=== PATIENT | male | born 1990 | race Caucasian/White ===

== ENCOUNTER 2017-07-12 08:00 | Outpatient (RCR) | payer BC, SELFPAY | END 2017-07-12 23:59 | LOC: PT.CARL 08:00 | PROVIDERS: Referring Provider Family Medicine; Visit Provider Family Medicine | DX: M54.10 Radiculopathy, site unspecified (principal) | CPT/HCPCS: 97012; 97035; 97110; 97140; 97162 ==

== ENCOUNTER 2017-08-01 16:00 | Outpatient (RCR) | payer BC, SELFPAY | END 2017-08-01 17:00 | disposition home or self-care (01) | LOC: PT 16:00 | PROVIDERS: Visit Provider Family Medicine | DX: M54.10 Radiculopathy, site unspecified (principal) | CPT/HCPCS: 97012; 97035; 97110; 97140 ==

== ENCOUNTER 2023-10-30 19:51 | Emergency (ER) | payer BC, SELFPAY ==
[2023-10-30 19:51] VITALS: BP 174/116; PULSE 99; RESP 16; TEMP 36.7; O2SAT 99; BMI 25.7
--- NOTE | 2023-10-30 19:57 | ECG_ITS ---
APPROVED REPORT Exam: Resting ECG HR:98 bpm ECG Measurements Heart Rate 98 AXES HI 166 P 63 QRSd 97 QRS 73 QT 326 T 45 QTc 382 Conclusion SINUS RHYTHM POSSIBLE RIGHT VENTRICULAR CONDUCTION DELAY [RSR (QR) IN V1/V2] BORDERLINE ECG UNCONFIRMED REPORT Electronically signed by : JUAN NAVAS, 10/31/2023 02:55:40
--- NOTE | 2023-10-30 19:57 | XR_ITS ---
PROCEDURE INFORMATION: Exam: XR Chest Exam date and time: 10/30/2023 7:59 PM Age: 33 years old Clinical indication: Pain; Chest pressure; Additional info: Cp TECHNIQUE: Imaging protocol: Radiologic exam of the chest. Views: 1 view. COMPARISON: No relevant prior studies available. FINDINGS: Lungs: The lungs appear clear. No focal areas of consolidation. Pleural spaces: No pleural effusions. Negative for pneumothorax. Heart/Mediastinum: Cardiac silhouette and pulmonary vasculature are within range of normal. Bones/joints: There is no evidence of acute fracture. IMPRESSION: Negative for an acute cardiopulmonary abnormality.
[2023-10-30] MEDS: ASPIRIN 81MG CHEWABLE TABLET 324 MG PO (20:04)
[2023-10-30 20:06] LABS: Basophils # 0.1 K/mm3 (0-0.2); Basophils % 0.8 % (0.1-2.0); Eosinophils # 0.2 K/mm3 (0.0-0.4); Eosinophils % 1.8 % (0.1-12.0); Hematocrit 42.2 % (42.0-52.0); Hemoglobin 14.3 g/dL (14.1-18.0); Lymphocytes # 2.4 K/mm3 (0.7-4.5); Lymphocytes % 24.3 % (10-50); Mean Corpuscular HGB Conc 33.9 g/dL (31.8-35.4); Mean Corpuscular Hemoglobin 33.2 pg (27.0-31.2); Mean Corpuscular Volume 97.9 fl (80-94); Mean Platelet Volume 8.3 fl (7.4-10.4); Monocytes # 0.8 K/mm3 (0.1-1.0); Monocytes % 7.6 % (1.7-9.3); Neutrophils # 6.5 K/mm3 (1.8-7.8); Neutrophils % 65.6 % (37.0-80.0); Platelet Count 334 K/mm3 (142-424); Red Blood Count 4.31 M/mm3 (4.60-6.20); Red Cell Distribution Width 12.7 % (11.5-17.5)
[2023-10-30 20:30] VITALS: BP 151/98; PULSE 82; RESP 14; O2SAT 98
[2023-10-30 20:31] LABS: Chloride 106 mmol/L (98-107); Potassium 3.8 mmoL/L (3.5-5.1); Sodium 140 mmol/L (136-145)
[2023-10-30 20:33] LABS: Alanine Aminotransferase 33 U/L (12-78); Aspartate Amino Transferase 31 U/L (17-59); Blood Urea Nitrogen 9 mg/dl (9-20); Creatinine Clearance Estimated 136 mL/min (50-200); Estimated Glomerular Filt Rate 96 ml/min (>60); GFR (African American) 116 ML/MIN (>60)
[2023-10-30 20:34] LABS: Albumin Level 4.3 g/dl (3.5-5.0); Albumin/Globulin Ratio 1.4 (1.1-1.8); Alkaline Phosphatase 64 U/L (38-126); Anion Gap 11.8 mEq/L (5-15); Bilirubin,Total 0.6 mg/dl (0.2-1.3); Calcium 9.1 mg/dl (8.4-10.2); Carbon Dioxide 26 mmol/L (22.0-30.0); Glucose 122 mg/dl (74-100); Total Protein,Serum 7.3 g/dl (6.3-8.2)
[2023-10-30 20:46] LABS: Troponin I < 0.01 ng/ml (0.00-0.034)
[2023-10-30 21:30] VITALS: BP 149/99; PULSE 63; RESP 18; O2SAT 98
--- NOTE | 2023-10-30 21:41 | ED_ITS ---
<Statement entered by Franklin Rushing MD - 10/31/23 00:09> I was consulted by the ROBERTO, and we discussed the complexity of the problems being addressed. I approved the treatment and management plan for this patient's care in the emergency department, thus performing a substantive portion of the medical decision making. Franklin Rushing MD Discharge Plan Disposition Patient Disposition: Home, Self-Care Condition: Good Referrals Follow up/Referrals: Kathy Sandoval [Primary Care Provider] - See instructions Gasper Patel MD [Staff Physician] - See instructions Activity Restrictions/Add. Instructions Additional Instructions/Restrictions: Follow-up with your PCP as needed for any return or recurrence of symptoms. I have referred you to cardiology. Please call make an appointment for the a.m. Please return to the emergency department for any worsening or change in your signs and symptoms including chest pain shortness of breath headache diaphoresis etc. as needed Clinical Impressions Clinical Impression: Chest pain Discharge ED Provider: Franklin Rushing General Adult HPI <JUN Maza - Last Filed: 10/30/23 23:36> General Chief complaint: Chest Pain Stated complaint: CP Time Seen by Provider: 10/30/23 20:00 Mode of Arrival: Ambulatory Source of Information: Patient Limitations: No Limitations Description of Symptoms (Recalled from ER Triage Doc. by RN): pt c/o midsternal CP with radiation that started 30 mins to arrival. pt states been having heartburn since History of Present Illness HPI narrative: Patient presents for epigastric and substernal chest pain that radiated down his left arm and began this evening. Patient states that he ate supper without difficulty without any evidence of choking and immediately thereafter started having epigastric pain/substernal chest pain that radiated up and down his left arm. Patient states his symptoms persisted for approximately 1 hour and dissipated without intervention approximately 30 minutes after arrival here in the emergency department. Patient has never had the symptoms before but does have a history of possibly IBS and has had a bidirectional endoscopy in the past. Patient currently denies shortness of breath fever chills hemoptysis hematochezia melena nausea vomit diarrhea. Related Data Allergies Allergy/AdvReac Type Severity Reaction Status Date / Time No Known Allergies Allergy Unverified 06/28/17 16:02 PFS <JUN Maza - Last Filed: 10/30/23 23:36> [facility] Disclaimer: The information contained in this section may have been updated after the patient was seen, as this information can be updated by other users. Social History Smoking Status: Never smoker alcohol intake: current current occupational status: employed Travel in the last 8 weeks: None <JUN Maza - Last Filed: 10/30/23 23:36> ROS Obtained: Yes Systems reviewed as appropriate & no additional complaints except as documented Physical Exam <JUN Maza - Last Filed: 10/30/23 23:36> General General appearance: alert and in no apparent distress Eye Eye exam: Present normal appearance ENT ENT exam: Present normal exam Neck Neck exam: Present normal inspection, full ROM and trachea midline; Absent tenderness Respiratory Respiratory exam: Present normal lung sounds bilaterally; Absent respiratory distress Cardiovascular Cardiovascular exam: Present regular rate and normal rhythm Abdominal Exam Abdominal exam: Present soft and normal bowel sounds; Absent tenderness Extremities Exam Extremities exam: Present normal inspection and full ROM; Absent tenderness Back Exam Back exam: Present normal inspection and full ROM; Absent tenderness Neurological Exam Neurological exam: Present alert and oriented X3 Medical Decision Making <JUN Maza - Last Filed: 10/30/23 23:36> Medical Records Medical records reviewed: Yes I reviewed the patient's medical records. Hussein Inquiry Pt receiving controlled substance: No Vital Signs: 10/30/23 19:51 10/30/23 20:30 10/30/23 21:30 Temperature 98.0 F Temperature Source Oral Pulse Rate 82 63 Pulse Rate [Right] 99 H Respiratory Rate 16 14 18 Blood Pressure 151/98 H 149/99 H Blood Pressure [Right Arm] 174/116 H Blood Pressure Mean 115 108 Blood Pressure Mean [Right Arm] 135 02 Sat by Pulse Oximetry 99 98 98 Oxygen Delivery Method 10/30/23 21:59 Temperature 98.0 F Temperature Source Oral Pulse Rate 63 Pulse Rate [Right] Respiratory Rate 16 Blood Pressure 149/99 H Blood Pressure [Right Arm] Blood Pressure Mean Blood Pressure Mean [Right Arm] 02 Sat by Pulse Oximetry Oxygen Delivery Method Room Air Lab Data Lab results reviewed: Yes I reviewed the patient's lab results. Lab Results 10/30/23 19:55: WBC 10.0, RBC 4.31 L, Hgb 14.3, Hct 42.2, MCV 97.9 H, MCH 33.2 H , MCHC 33.9, RDW 12.7, Plt Count 334, MPV 8.3, Neut % (Auto) 65.6, Lymph % (Auto) 24.3, [place] % (Auto) 7.6, Eos % (Auto) 1.8, Baso % (Auto) 0.8, Neut # (Auto) 6.5, Lymph # (Auto) 2.4, [place] # (Auto) 0.8, Eos # (Auto) 0.2, Baso # (Auto) 0.1 10/30/23 20:19: Sodium 140, Potassium 3.8, Chloride 106, Carbon Dioxide 26, Anion Gap 11.8, BUN 9, Creatinine 0.90, Estimated Creat Clear 136, Estimated GFR 96, Est GFR ( Amer) 116, Glucose 122 H, Calcium 9.1, Total Bilirubin 0.6, AST 31, ALT 33, Alkaline Phosphatase 64, Troponin I < 0.01, Total Protein 7.3, Albumin 4.3, Globulin 3.0, Albumin/Globulin Ratio 1.4 10/30/23 19:55 10/30/23 20:19 Orders (Tests/Meds): ED MEDICATIONS Discontinued Medications Generic Name Dose Route Start Last Admin Trade Name Freq PRN Reason Stop Dose Admin Aspirin 324 mg 10/30/23 19:58 10/30/23 20:04 Aspirin 81mg Chewable Tablet PO 10/30/23 19:59 324 mg ONCE ONE Administration ORDERS Category Date Time Status Chest XR -- portable [XR chest portable] Stat Exams 10/30/23 19:57 Completed Complete Blood Count Auto Diff Stat Lab 10/30/23 19:55 Completed Comprehensive Metabolic Panel Stat Lab 10/30/23 20:19 Completed Troponin I Stat Lab 10/30/23 20:19 Completed HEART Score History (anamnesis): Slightly suspicious ECG: Normal Age: <45 years Risk factors: No known risk factors Troponin: </= normal limit HEART Score: 0 Medical Decision Narrative: In summary patient is a 3-year-old male who presents to the emergency department for evaluation of chest pain. Patient is dynamically stable upon arrival, afebrile. Physical exam is unremarkable and currently nonfocal. Differential diagnosis includes ACS versus esophagitis ulcer disease etc. Initial workup will be conducted with hematologic labs plain film chest x-ray. Patient is currently chest pain-free should it recur will initiate Toradol and Tylenol . Initial workup reviewed by me shows that his hematologic labs are nonactionable but EKG shows no evidence of ACS and plain film chest x-ray shows no acute processes Via my informal review. Upon repeat evaluation she has remained hemodynamically stable and chest pain-free. Given this patient is appropriate for discharge with referral to cardiology for close follow-up and referral back to his PCP for a GI referral as well. <Franklin Rushing MD - Last Filed: 10/30/23 21:51> Vital Signs: 10/30/23 19:51 10/30/23 20:30 10/30/23 21:30 Temperature 98.0 F Temperature Source Oral Pulse Rate 82 63 Pulse Rate [Right] 99 H Respiratory Rate 16 14 18 Blood Pressure 151/98 H 149/99 H Blood Pressure [Right Arm] 174/116 H Blood Pressure Mean 115 108 Blood Pressure Mean [Right Arm] 135 02 Sat by Pulse Oximetry 99 98 98 Oxygen Delivery Method 10/30/23 21:59 Temperature 98.0 F Temperature Source Oral Pulse Rate 63 Pulse Rate [Right] Respiratory Rate 16 Blood Pressure 149/99 H Blood Pressure [Right Arm] Blood Pressure Mean Blood Pressure Mean [Right Arm] 02 Sat by Pulse Oximetry Oxygen Delivery Method Room Air Lab Data Lab Results 10/30/23 19:55: WBC 10.0, RBC 4.31 L, Hgb 14.3, Hct 42.2, MCV 97.9 H, MCH 33.2 H , MCHC 33.9, RDW 12.7, Plt Count 334, MPV 8.3, Neut % (Auto) 65.6, Lymph % (Auto) 24.3, [place] % (Auto) 7.6, Eos % (Auto) 1.8, Baso % (Auto) 0.8, Neut # (Auto) 6.5, Lymph # (Auto) 2.4, [place] # (Auto) 0.8, Eos # (Auto) 0.2, Baso # (Auto) 0.1 10/30/23 20:19: Sodium 140, Potassium 3.8, Chloride 106, Carbon Dioxide 26, Anion Gap 11.8, BUN 9, Creatinine 0.90, Estimated Creat Clear 136, Estimated GFR 96, Est GFR ( Amer) 116, Glucose 122 H, Calcium 9.1, Total Bilirubin 0.6, AST 31, ALT 33, Alkaline Phosphatase 64, Troponin I < 0.01, Total Protein 7.3, Albumin 4.3, Globulin 3.0, Albumin/Globulin Ratio 1.4 Orders (Tests/Meds): ED MEDICATIONS Discontinued Medications Generic Name Dose Route Start Last Admin Trade Name Ren PRN Reason Stop Dose Admin Aspirin 324 mg 10/30/23 19:58 10/30/23 20:04 Aspirin 81mg Chewable Tablet PO 10/30/23 19:59 324 mg ONCE ONE Administration ORDERS Category Date Time Status Chest XR -- portable [XR chest portable] Stat Exams 10/30/23 19:57 Completed Complete Blood Count Auto Diff Stat Lab 10/30/23 19:55 Completed Comprehensive Metabolic Panel Stat Lab 10/30/23 20:19 Completed Troponin I Stat Lab 10/30/23 20:19 Completed ECG Data Tracing #1: Independently interpreted by me, rate is 98, rhythm is regular, axis normal, no ST elevation in anatomical contiguous leads, QTc 382 Critical Care <JUN Maza - Last Filed: 10/30/23 23:36> Critical Care Time Critical Care Time: No
[2023-10-30 21:59] VITALS: BP 149/99; PULSE 63; RESP 16; TEMP 36.7; O2SAT 98
== END 2023-10-30 22:00 | disposition home or self-care (01) ==
PROVIDERS: Emergency Provider Emergency Medicine; PCP Nurse Practitioner Family
DX: R07.9 Chest pain, unspecified (principal); R10.13 Epigastric pain
CPT/HCPCS: 71045; 80053; 84484; 85025; 93005; 99284

== ENCOUNTER 2023-11-07 12:02 | Outpatient (CLI) | payer BC, SELFPAY ==
[2023-11-07 12:24] LABS: Basophils # 0.1 K/mm3 (0-0.2); Basophils % 0.5 % (0.1-2.0); Eosinophils # 0.1 K/mm3 (0.0-0.4); Hematocrit 43.4 % (42.0-52.0); Hemoglobin 14.6 g/dL (14.1-18.0); Lymphocytes # 1.7 K/mm3 (0.7-4.5); Lymphocytes % 15.7 % (10-50); Mean Corpuscular HGB Conc 33.5 g/dL (31.8-35.4); Mean Corpuscular Hemoglobin 32.7 pg (27.0-31.2); Mean Corpuscular Volume 97.5 fl (80-94); Mean Platelet Volume 7.9 fl (7.4-10.4); Monocytes # 0.6 K/mm3 (0.1-1.0); Monocytes % 5.1 % (1.7-9.3); Neutrophils # 8.5 K/mm3 (1.8-7.8); Neutrophils % 77.8 % (37.0-80.0); Platelet Count 362 K/mm3 (142-424); Red Blood Count 4.45 M/mm3 (4.60-6.20); Red Cell Distribution Width 12.9 % (11.5-17.5)
[2023-11-07 12:30] LABS: D-Dimer 0.26 ug/mL (0.0-0.5)
[2023-11-07 13:16] LABS: Alanine Aminotransferase 35 U/L (12-78); Albumin Level 4.8 g/dl (3.5-5.0); Alkaline Phosphatase 85 U/L (38-126); Anion Gap 13.4 mEq/L (5-15); Aspartate Amino Transferase 32 U/L (17-59); Bilirubin,Direct 0.2 mg/dl (0.0-0.4); Bilirubin,Indirect 0.5 mg/dL (0.0-0.9); Bilirubin,Total 0.7 mg/dl (0.2-1.3); Bilirubin,Unconjugated 0.5 mg/dL (0.0-1.1); Blood Urea Nitrogen 8 mg/dl (9-20); Calcium 10.1 mg/dl (8.4-10.2); Carbon Dioxide 26 mmol/L (22.0-30.0); Chloride 106 mmol/L (98-107); Chol/HDL Ratio 3.8 (1-3.5); Cholesterol 197 mg/dl (140-200); Estimated Glomerular Filt Rate 96 ml/min (>60); GFR (African American) 116 ML/MIN (>60); Glucose 97 mg/dl (74-100); HDL Cholesterol 52 mg/dl (40-60); Potassium 4.4 mmoL/L (3.5-5.1); Sodium 141 mmol/L (136-145); Total Protein,Serum 7.9 g/dl (6.3-8.2); Triglycerides 124 mg/dl (30-150); VLDL Cholesterol 25 mg/dL (0-40)
[2023-11-07 13:27] LABS: Direct LDL Cholesterol 109.68 mg/dL (100-129)
[2023-11-07 13:33] LABS: Free T4 (Free Thyroxine) 0.94 ng/dl (0.78-2.19)
[2023-11-07 13:47] LABS: Thyroid Stimulating Hormone 0.88 uIU/mL (0.465-4.68)
== END 2023-11-07 23:59 | disposition home or self-care (01) ==
LOC: LAB 12:03
PROVIDERS: PCP Nurse Practitioner Family; Visit Provider Nurse Practitioner
DX: R07.9 Chest pain, unspecified (principal); I10 Essential (primary) hypertension
CPT/HCPCS: 36415; 80048; 80061; 80076; 83735; 84439; 84443; 85025; 85378

== ENCOUNTER 2023-11-16 06:19 | Outpatient (CLI) | payer BC, SELFPAY ==
--- NOTE | 2023-11-16 06:23 | NM_ITS ---
APPROVED REPORT Exam: Nuclear Stress Test Indication: HTN, FM HX, PALPITATIONS Patient Location: Outpatient Stress Tech: Alessandra Galeana IN Tech:Trudy Holm AKSHATDell RT (R)(N)(M) Ht: 5 ft 11 in Wt: 180 lbs HR: 104 bpm BP: 146/92 mmHg BSA: 2.02 m2 TID: 1.22 BMI: 25.1 History: HTN, FM HX, PALPITATIONS Procedure: Patient exercised on Chi protocol 9:00 minutes and sec, resting heart rate 104 bpm, resting blood pressure 146/92 mmHg, with exercise maximum heart rate achived was 181 bpm which is 98 % of the maximum predicted heart rate and blood pressure was 194/86 mmHg. Test was stopped due to fatigue. Patient has exercise capacity, achieved 10.1 METs of workload on treadmill, the blood pressure response to exercise was . Cardiac Stress and Resting SPECT Images: Cardiac Stress and Resting SPECT images were obtained using technetium 99m Myoview 31.4 mCi stress and 10.74 mCi at rest. Resting and stress imaging in supine and prone positions demonstrate no evidence of fixed or reversible perfusion defects. There is increased transient ischemic dilatation ratio (TID 1.22), suggestive of possible multivessel disease or balanced ischemia. Gated imaging demonstrates normal global and regional LV systolic function. LVEF is calculated at 54%. Conclusion: No evidence of fixed or reversible perfusion defects. There is increased transient ischemic dilatation ratio (TID 1.22), suggestive of possible multivessel disease or balanced ischemia. Gated imaging demonstrates normal global and regional LV systolic function. LVEF is calculated at 54%. In the setting of increased TID, young age, and normal LVEF, further evaluation with noninvasive testing (i.e. CCTA) is recommended prior to proceeding with invasive coronary angiography. Electronically signed by : Arin Multani MD 11/17/2023 11:58:58
--- NOTE | 2023-11-16 06:24 | CA_ITS ---
APPROVED REPORT EXAM: Comprehensive 2D, Doppler, and color-flow Echocardiogram Globe Changer: Wendy Hedrick CRT Ht: 5 ft 11 in Wt: 188lbs BSA: 2.05 BP: 163/109 mmHg Indications: Chest Pain, Hypertension/HDD 2D Dimensions LA Volume 30.10 mL LA Volume Index 14.30 mL/m2 (M/F) 16-34 M-Mode Dimensions RVDd 2.15 cm (0.9-2.6) LA Diam 3.02 cm (1.9-4.0) LVDd 5.26 cm (3.5-5.7) LVDs 3.22 cm (3.5-5.7) IVSd 1.07 cm (0.6-1.1) PWd 1.00 cm (0.6-1.1) EF (Teich) 68.70% FS 38.80% EDV (Teich) 133.00 mL TAPSE 2.31 (<1.7) ESV (Teich) 41.60 mL LV Diastology E Decel Time 157 (160-240 msec) E/A Ratio 1.36 MED A' 6.80 cm/s LAT A' 7.20 cm/s Aortic Valve AO Peak GR. 5.40 mmHg Mitral Valve MV A Velocity 50.0 (40-130 cm/s) E/A Ratio 1.36 Pulmonary Valve PV Peak Velocity 178.0 (50-150 cm/s) Tricuspid Valve TR P. Velocity 112.00 cm/s RAP Estimate 10.00 mmHg RVSP 15.10 mmHg Left Ventricle The left ventricle is normal size. The left ventricular systolic function is normal. The left ventricular ejection fraction is within the normal range. There is normal left ventricular wall thickness. There is normal LV segmental wall motion. The left ventricular diastolic function is normal. LVEF is 55%. Right Ventricle The right ventricle is normal size. The right ventricular systolic function is normal. Atria The left atrium size is normal. The right atrium size is normal. There is no Doppler evidence of interatrial shunt. Aortic Valve The aortic valve opens well. The aortic valve is trileaflet. There is no aortic valvular stenosis. No aortic regurgitation is present. Mitral Valve The mitral valve is normal in structure. No evidence of mitral valve stenosis. Trace mitral regurgitation. Tricuspid Valve The tricuspid valve leaflets are thin and pliable. Trace tricuspid regurgitation. There is insufficient TR jet to estimate RVSP. Pulmonic Valve The pulmonary valve is normal in structure. Trace pulmonic regurgitation. Great Vessels The aortic root is normal in size. The ascending aorta is normal in size. IVC is normal in size and collapses >50% with inspiration. Pericardium There is no pericardial effusion. Other Information Study Quality: Adequate Conclusion Normal biventricular systolic function. No significant valvular stenosis or regurgitation. Electronically signed by : Arin Multani MD 11/20/2023 21:16:16
[2023-11-16] MEDS: SODIUM CHLORIDE 0.9% 10ML SYR (RAD ONLY) 10 ML IV ×2 (06:30→08:05)
[2023-11-16] MEDS: ISOTOPE MYOVIEW (PER STUDY) 1 DOSE IV (09:44)
--- NOTE | 2023-11-16 12:08 | CA_ITS ---
APPROVED REPORT Exam: Exercise Treadmill Technologist: Alessandra Galeana, Ht: 5 ft 11 in Wt: 188 lbs BSA: 2.05 m2 HR: 78 bpm BP: 146/92 mmHg Rhythm: NSR Indications: Chest pain Medical History Medications: Losartan,,,,, Nexium,,,,, Stress Test Details Test: Chi HR Resting HR: 104 bpm Max Heart Rate (APMHR): 185 bpm Max HR Achieved: 181 bpm Target HR (85% APMHR): 157 bpm % of APMHR: 98 Recovery HR: 123 bpm HR response to stress: Normal HR response to stress BP Resting BP: 146.0/92.0 mmHg Max BP: 194.0/86.0 mmHg Recovery BP: 158.0/98.0 mmHg BP response to stress: Normal blood pressure response to stress. ECG Resting ECG: NSR, normal ST Stress ECG: < 0.[address] depression Arrhythmia: None Recovery ECG: Return to baseline within 3 minutes of recovery Recovery Arrhythmia: None Clinical Exercise duration: 09:00 min Highest Stage Achieved: III Exercise capacity: 10.1 METs Overall Exercise Capacity for Age: Average Stress ECG Conclusion Exercised 9:00 on Chi Protocol, completing stage III. Max HR: 175 % of PM: 95% Max BP: 194/86 METs: 10.1 Test stopped due to: SOA, fatigue. Symptoms: No CP. Arrhythmias/Ectopy: None ST-T Changes: < 0.[address] depression Concluion: Average exercise capacity. Normal GXT. Myoview images reported separately. Test Summary REST . . . . . . . Sitting REST . . . . . . . Standing REST 11:42 0.0 0.0 104 . 146/ 92 . . Stage 1 01:00 10.0 1.7 120 . . . . Stage 1 02:00 10.0 1.7 124 . . . . Stage 1 03:00 10.0 1.7 124 . 176/ 86 . . Stage 2 01:00 12.0 2.5 146 . . . . Stage 2 02:00 12.0 2.5 157 . . . . Stage 2 03:00 12.0 2.5 160 . 194/ 86 . . Stage 3 01:00 14.0 3.4 174 . . . . Stage 3 . . . . . . . Myoview Injected Stage 3 02:00 14.0 3.4 178 . . . . Stage 3 03:00 14.0 3.4 175 . . . Stop exercise at 09:00 RECOVERY 01:00 0.0 0.0 163 . . . . RECOVERY 02:00 0.0 0.0 140 . 182/ 97 . . RECOVERY 03:00 0.0 0.0 125 . 182/ 97 . . RECOVERY 04:00 0.0 0.0 126 . 149/ 96 . . RECOVERY 05:00 0.0 0.0 123 . 158/ 98 . . RECOVERY 05:43 0.0 0.0 114 . 158/ 98 . . Electronically signed by : Arin Multani MD 11/17/2023 11:39:53
== END 2023-11-16 23:59 | disposition home or self-care (01) ==
PROVIDERS: PCP Nurse Practitioner Family; Visit Provider Nurse Practitioner
DX: R07.9 Chest pain, unspecified (principal); I10 Essential (primary) hypertension
CPT/HCPCS: 78452; 93017; 93018; 93306; A9502

== ENCOUNTER 2023-12-23 08:53 | Outpatient (CLI) | payer BC, SELFPAY ==
--- NOTE | 2023-12-23 08:54 | CT_ITS ---
APPROVED REPORT Legal Billing Analyst: CLINICAL INDICATION Chest Pain TECHNIQUE Image Acquisition: A 128 slice MDCT scanner ([employer] View) was used for data acquisition. A noncontrast coronary calcium scan was performed. A CT attenuation threshold of 130 Hounsfield units (HU) was used for the detection of calcium in contiguous voxels of 1 sq mm in area to be counted as individual lesions. Bolus tracking in the ascending aorta with a threshold of 180 HU was performed. Immediately afterwards, ECG synchronized cardiac CT was then performed from the cardiac base to apex using retrospective gating with ECG tube current modulation. A total of 85 mL of Isovue 370 mg/mL contrast medium was administered at 5 mL/sec followed by a saline flush using a biphasic injection protocol. A tube voltage of 120 KVp was used. The patient received the following medications prior to the cardiac CT. 5 mg of intravenous metoprolol 0.8 mg of sublingual nitroglycerin The average heart rate at the time of acquisition was 78 bpm and regular. Image Reconstruction Transaxial images were reconstructed at 0.67 mm slide thickness. Data was reviewed interactively on an advanced workstation capable of 2 and 3-dimensional displays in all conventional reconstruction formats, including multiplanar reformations, maximum intensity projections, curved multiplanar reformations, and volume rendered reconstructions. When applicable, selected routine images describing the relevant coronary anatomy and pathology were saved and sent to PACS. Complications None Technical Quality Overall image quality was good. Coronary artery opacification was adequate. Total DLP (Dose-Length Product) is 1639.9 mGy-cm. The reported value represents the total of one or more individual components during the CT acquisition of this date and at this time, and as such, the same value may appear in more than one CT report depending on the interpreting/reporting physicians. COMPARISON None FINDINGS CT Coronary Calcium Scoring LMA (Left Main Artery) = 0 LAD (Left Anterior Descending) = 0 LCX (Left Coronary Circumflex) = 0 RCA (Right Coronary Artery) = 0 Total Calcium Score = 0 using the AJ-130 method. The interpretation of the calcium heart score is based on the following continuum*: 0 = no calcified plaque detected (risk of coronary artery disease is very low ??? less than 5%) 1-10 = calcium detected in extremely minimal levels (risk of coronary diseases is still low ??? less than 10%) 11-100 = mild levels of plaque detected with certainty (mild or minimal narrowing of heart arteries is likely) 101-400 = definite,at least moderate levels of plaque detected (relatively high risk of a heart attack within 3-5 years) >401-999 = extensive levels of plaque detected (high risk of heart attack, high levels of vascular disease are present, high likelihood of at least one significant coronary narrowing) *The calcium heart score quantifies the burden of coronary calcification/plaque in the coronary arteries. The calcium heart score is not able to evaluate the presence or burden of non-calcified (i.e. soft) plaque. There is no identifiable calcification in the aortic valve, mitral annulus or mitral valve, pericardium, or myocardium. Coronary CT Angiography The coronary arterial system is right dominant. Quantitative Stenosis Grading: Left Main (LM): The left main originates normally from the left sinus of Valsalva. The LM bifurcates into the left anterior descending artery and left circumflex artery. The LM is patent with no evidence of atherosclerosis. Left Anterior Descending (LAD) and Diagonal Branches: The LAD gives off 2 diagonal branch(es). The LAD and its branches are patent with no evidence of atherosclerosis. There is no evidence of LAD-myocardial bridge. Left Circumflex (LCX) and Obtuse Marginals (OM): The LCX gives off 1 Obtuse Marginal (OM) branch(es). The LCX and its branches are patent with no evidence of atherosclerosis. Right Coronary Artery (RCA): The RCA originates normally from the right sinus of Valsalva. The RCA gives off a posterior descending artery (PDA) and posterolateral (PL) branches. The RCA and its branches are patent with no evidence of atherosclerosis. Non-Coronary Cardiac Findings: Analysis of the left ventricular (LV) structure and function was performed after 3-D reconstruction of the LV from axial images, with user-corrected automatic contouring for assessment of LV volumes and user-defined reconstruction from oblique planes for measurement of 3-D cardiac structure and function. -The left ventricle systolic function is normal. -There is no left atrial appendage filling defect. Two right pulmonary veins and two left pulmonary veins drain normally into the left atrium. -No pericardial thickening or calcification. -Central and branch pulmonary arteries in the [id number] are unremarkable. -Thoracic aorta within the visualized thoracic aortic-branches in the [id number] is unremarkable. Extracardiac Structures No significant extra-cardiac findings. Note, however, that this study is focused on the cardiac findings. IMPRESSION -No coronary calcification with an Agatston score = 0 using the AJ-130 method. -No evidence of significant flow-limiting atherosclerosis of the coronary arteries. -No evidence of coronary anomalies or myocardial bridges. -CAD-RADS 0. Management recommendations per ACC/AHA guidelines*, as clinically appropriate. *Recommendations: CAD RADS 0: Reassurance. Consider non-atherosclerotic causes of chest pain. CAD RADS 1: Consider non-atherosclerotic causes of chest pain. Consider preventive therapy and risk factor modification. CAD RADS 2: Consider non-atherosclerotic causes of chest pain. Consider preventive therapy and risk factor modification, particularly for patients with nonobstructive plaque in multiple segments. CAD RADS 3: Consider further functional testing. Consider symptom-guided anti-ischemic and preventive pharmacotherapy as well as risk factor modification per published guideline statements. CAD RADS 4A: Consider further functional testing or invasive coronary angiography with revascularization per published guideline statements. Consider symptom-guided anti-ischemic and preventive pharmacotherapy as well as risk factor modification per published guideline statements. CAD RADS 4B: Invasive coronary angiography recommended with revascularization per published guideline statements. Consider symptom-guided anti-ischemic and preventive pharmacotherapy as well as risk factor modification per published guideline statements. CAD RADS 5: Consider invasive angiography and/or viability assessment with revascularization per published guideline statements. Consider symptom-guided anti-ischemic and preventive pharmacotherapy as well as risk factor modification per published guideline statements. CRITICAL RESULT None COMMUNICATION Per this written report The coronary and cardiac findings of this CCTA were reviewed, reported, and signed by Rashaun Multani MD (Polymer Chemist) Conclusion Electronically signed by : Arin Multani MD 12/26/2023 14:15:53
[2023-12-23 09:03] VITALS: BMI 25.7
[2023-12-23 09:09] VITALS: BP 150/105; PULSE 62; RESP 18; TEMP 36.4; O2SAT 100
[2023-12-23 09:41] LABS: Anion Gap 16.5 mEq/L (5-15); Blood Urea Nitrogen 11 mg/dl (9-20); Calcium 8.8 mg/dl (8.4-10.2); Carbon Dioxide 25 mmol/L (22.0-30.0); Chloride 102 mmol/L (98-107); Creatinine Clearance Estimated 122 mL/min (50-200); Estimated Glomerular Filt Rate 85 ml/min (>60); GFR (African American) 103 ML/MIN (>60); Glucose 94 mg/dl (74-100); Potassium 4.5 mmoL/L (3.5-5.1); Sodium 139 mmol/L (136-145)
[2023-12-23 09:53] VITALS: BP 159/104; PULSE 76; O2SAT 100
[2023-12-23] MEDS: NITROGLYCERIN 0.4MG SL TABLET 0.8 MG SL (09:53)
[2023-12-23 09:56] VITALS: BP 142/103; PULSE 74; O2SAT 100
[2023-12-23 10:00] VITALS: BP 138/80; PULSE 63
[2023-12-23] MEDS: METOPROLOL TARTRATE 5MG/5ML VIAL *IVABRADINE+METOPROLOL REGIMINE 5 MG IV (10:00)
[2023-12-23] MEDS: SODIUM CHLORIDE 0.9% 10ML SYR (RAD ONLY) 10 ML IV (10:02)
[2023-12-23] MEDS: IOPAMIDOL-370 (76%);100ML BOTTLE 85 ML IV (10:02)
[2023-12-23] MEDS: 0.9 % SODIUM CHLORIDE 50 ML VIAL IV (10:02)
[2023-12-23 10:14] VITALS: BP 129/72; PULSE 61
== END 2023-12-23 10:27 | disposition home or self-care (01) ==
LOC: RAD 08:53
PROVIDERS: PCP Nurse Practitioner Family; Visit Provider Nurse Practitioner
DX: R00.2 Palpitations (principal); R07.9 Chest pain, unspecified; I10 Essential (primary) hypertension
CPT/HCPCS: 75574; 80048; Q9967